=== PATIENT | male | born 1965 | race Caucasian/White ===

== ENCOUNTER → 2017-04-14 | Outpatient (CLI) | payer BC, OTHER ==
[~2017-04-14] MED LIST: FENO145T25; RED600CA7; UBID100C
--- NOTE | 2017-04-14 15:17 | RADRPT ---
PROCEDURE: Left knee radiographs. CLINICAL INDICATION: Left knee pain. TECHNIQUE: Four views. Weight bearing. Frontal, lateral, oblique, and patellar view. COMPARISON: None. FINDINGS: There is no fracture or dislocation. The soft tissues are normal. There are mild degenerative changes with small osteophytes arising from all 3 joint compartment christopher ins. There is no lytic or blastic lesion. There is no radiopaque foreign body. IMPRESSION: 1. Mild degenerative change. 2. Otherwise normal images of the left knee. RPTAT: QQ .Oleg Jeter MD, MD Date Time Electronically viewed and signed by .Oleg Jeter MD, MD on 04/14/2017 15:17 .R/
== END | disposition home or self-care (01) ==
LOC: HKI 09:02
PROVIDERS: ATTEND Orthopaedic Surgery
DX: M25.562 Pain in left knee (principal)
CPT/HCPCS: 73564; G0463